=== PATIENT | female | born 1995 | race Caucasian/White ===

== ENCOUNTER 2016-06-04 02:00 | Emergency (ER) | payer BC ==
[2016-06-04 02:05] VITALS: BP 117/80; PULSE 110; RESP 18; TEMP 97.5; O2SAT 96
--- NOTE | 2016-06-04 02:08 | EDPHY ---
H & P Stated Complaint: laceration to right calf HPI/ROS: HPI CHIEF COMPLAINT: Laceration of right calf HISTORY OF PRESENT ILLNESS: This patient very pleasant 20-year-old female, denies any significant medical history except for chronic back pain, no surgical history, presents to the emergency room with a laceration to the right posterior calf. Patient states this happened approximately 20 minutes ago. Patient states that she was drinking this evening was going to go by [employer] however. Her friend's house who is highly intoxicated and was showing off 1 of his large knifes. She tells me they were both hold each other he, found slipped down hugging her legs and sustained a laceration to the posterior calf of the right leg. She denies any other areas of injury she states this was an accident this was not an actual stab wound or intentional injury. She states she was not stabbed. She denies any significant pain. She tells me she had 5-6 alcoholic drinks this evening. Tells her tetanus shot is up-to-date no other drugs. Past Medical History: Chronic back pain Past Surgical History: No significant surgical history Social History: Denies use of drugs, or tobacco products, occasional alcohol use, is a student and works part-time Family History: Noncontributory ROS REVIEW OF SYSTEMS: A comprehensive 10 point review of systems is otherwise negative aside from elements mentioned in the history of present illness. Exam Constitutional triage nursing summary reviewed, vital signs reviewed, awake/ alert. Eyes normal conjunctivae and sclera, EOMI, PERRLA. HENT normal inspection, atraumatic, moist mucus membranes, no epistaxis, neck supple/ no meningismus, no raccoon eyes. Respiratory clear to auscultation bilaterally, normal breath sounds, no respiratory distress, no wheezing. Cardiovascular rate normal, regular rhythm, no murmur, no edema, distal pulses normal. Gastrointestinal soft, non-tender, no rebound, no guarding, normal bowel sounds, no distension, no pulsatile mass. Genitourinary no CVA tenderness. Musculoskeletal right lower extremity: Posterior calf there is a 5 cm horizontal laceration mid calf posteriorly, distally she is neurovascular intact with good pulses, good DP, full flexion extension of her ankle no Achilles injury, good cap refill, good sensation, no midline vertebral tenderness, full range of motion, no calf swelling, no tenderness of extremities , no meningismus, good pulses, neurovascularly intact. Skin pink, warm, & dry, no rash, skin atraumatic. Neurologic awake, alert and oriented x 3, AAOx3, moves all 4 extremities equally, motor intact, sensory intact, CN II-XII intact, normal cerebellar, normal vision, normal speech. Psychiatric normal mood/affect. Heme/Lymph/Immune no lymphadenopathy. Differential Diagnosis: Includes but is not limited to in a particular, laceration to the right posterior calf, soft tissue injury. Medical Decision Making: This patient is laceration will be anesthetized and then cleaned sterilely and will need to be closed. Re-evaluation: Laceration Repair Procedure: Verbal Consent was obtained, Under sterile conditions, The patient had lidocaine with epinephrine used approximately 5ccs to local anesthetize the 5cm horizontal right post calf Laceration. The wound was copiously irrigated with sterile fluid, the wound was explored for foreign bodies there were none visualized, the wound was explored with a sterile glove to the base. There are no deep structures involved, including no arterial injury. SIX 4.0 Prolene interrupted Sutures were placed in this patient's laceration. She had good close approximation of the wound edges. She Tolerated this well. Source: Patient - Personal History Current Tetanus/Diphtheria Vaccine: Yes Current Tetanus Diphtheria and Acellular Pertussis (TDAP): Yes - Medical/Surgical History Hx Asthma: No Hx Chronic Respiratory Disease: No Hx Diabetes: No Hx Cardiac Disease: No Hx Renal Disease: No Hx Cirrhosis: No Hx Alcoholism: No Hx HIV/AIDS: No Hx Splenectomy or Spleen Trauma: No Other PMH: chronic back pain - Social History Smoking Status: Light smoker Constitutional: Initial Vital Signs Temperature (C) 36.4 C 06/04/16 02:02 Heart Rate 110 H 06/04/16 02:02 Respiratory Rate 18 06/04/16 02:02 Blood Pressure 117/80 06/04/16 02:02 O2 Sat (%) 96 06/04/16 02:02 O2 Delivery Mode Room Air Allergies/Adverse Reactions: No Known Allergies Allergy (Unverified 06/04/16 02:05) Home Medications: Medication Instructions Recorded Cephalexin [Keflex (*)] 500 mg PO Q6H #28 cap 06/04/16 Departure - Departure Disposition: Home, Routine, Self-Care Clinical Impression: Laceration Condition: Good Instructions: Laceration (ED), Care For Your Stitches (ED) Additional Instructions: 1. Please keep your wound clean, dry, intact. You may shower after 24 hours. Wash gently with soap and water. Use antibiotic ointment to help keep the sutures from scabbing over. 2. You needs to have your sutures removed in 12-14 days. Watch for signs of infection including increasing severe pain, redness, swelling, drainage, or fever. 3. Take your Keflex as prescribed. Referrals: [place] STATE,. [Primary Care Provider] - As per Instructions Prescriptions: Cephalexin [Keflex (*)] 500 mg PO Q6H #28 cap
== END 2016-06-04 04:12 | disposition home or self-care (01) ==
PROC: 0HQKXZZ Repair Right Lower Leg Skin, External Approach (ICD-10-PCS; principal; 2016-06-04)
DX: S81.811A Laceration without foreign body, right lower leg, initial encounter (principal); F17.200 Nicotine dependence, unspecified, uncomplicated; W26.0XXA Contact with knife, initial encounter

== ENCOUNTER 2018-04-27 13:44 | Emergency (ER) | payer BC, OTHER ==
--- NOTE | 2018-04-27 15:47 | EDPHY ---
H & P Stated Complaint: R calf pain/swelling Time Seen by Provider: 04/27/18 15:30 HPI/ROS: CHIEF COMPLAINT: Right calf pain HISTORY OF PRESENT ILLNESS: The patient presents the ED for evaluation of 2 days of atraumatic right calf pain. The patient does not smoke. The patient does not use control pills. The patient has no family history of thromboembolic disease. The patient denies any chest pain or shortness of breath. The patient has no complaints of fever. She denies any acute numbness or weakness. REVIEW OF SYSTEMS: A comprehensive 10 point review of systems is otherwise negative aside from elements mentioned in the history of present illness. Source: Patient Exam Limitations: No limitations - Personal History LMP (Females 10-55): 15-21 Days Ago Current Tetanus/Diphtheria Vaccine: Yes - Medical/Surgical History Hx Asthma: No Hx Chronic Respiratory Disease: No Hx Diabetes: No Hx Cardiac Disease: No Hx Renal Disease: No Hx Cirrhosis: No Hx Alcoholism: No Hx HIV/AIDS: No Hx Splenectomy or Spleen Trauma: No Other PMH: chronic back pain - Social History Smoking Status: Light smoker - Physical Exam Exam: General Appearance: Alert, no distress Eyes: Pupils equal and round no pallor or injection ENT, Mouth: Mucous membranes moist Respiratory: There are no retractions, lungs are clear to auscultation Cardiovascular: Regular rate and rhythm Gastrointestinal: Abdomen is soft and nontender, no masses, bowel sounds normal Neurological: 5/5 strength noted all 4 extremities Skin: Warm and dry, no rashes Musculoskeletal: Tenderness to palpation noted in the right calf, no asymmetry appreciated Extremities: symmetrical, full range of motion Constitutional: Initial Vital Signs Temperature (C) 36.6 C 04/27/18 14:02 Heart Rate 80 04/27/18 14:02 Respiratory Rate 18 04/27/18 14:02 Blood Pressure 111/75 04/27/18 14:02 O2 Sat (%) 97 04/27/18 14:02 O2 Delivery Mode Room Air Allergies/Adverse Reactions: No Known Allergies Allergy (Unverified 04/27/18 14:06) Home Medications: Medication Instructions Recorded Cephalexin [Keflex (*)] 500 mg PO Q6H #28 cap 06/04/16 Medical Decision Making - Diagnostics Imaging Results: Imaging Impressions Extremity Venous Study 04/27/18 15:39 Impression: No deep venous thrombosis right leg. Results called to Dr. Rajeev Terrazas at 4:25 PM. ED Course/Re-evaluation: The patient presents the ED for evaluation of atraumatic right calf pain. The patient has no clinical evidence of cellulitis, abscess or arterial insufficiency. The patient was taken for a ultrasound of the leg which demonstrates no evidence of a DVT. The patient was re-evaluated. I do believe that she is likely having a myofascial strain as the presentation of her symptoms today. She will be discharged home with customary aftercare instructions and return precautions. Plan for repeat ultrasound in 2 weeks for any ongoing symptoms. Differential Diagnosis: Differential diagnosis considered includes myofascial strain, DVT, cellulitis, abscess, arterial insufficiency Departure - Departure Disposition: Home, Routine, Self-Care Clinical Impression: Right calf pain Condition: Good Instructions: Musculoskeletal Pain (ED) Additional Instructions: 1. Take Ibuprofen or Motrin 600 mg by mouth three times a day. 2. Your ultrasound demonstrates no evidence of a DVT. 3. Repeat ultrasound in 2 weeks for any ongoing symptoms. 4. Return to the emergency department for markedly worsening symptoms, fever, redness, shortness of breath or other concerns.
[2018-04-27 16:39] VITALS: BP 118/69
== END 2018-04-27 16:38 | disposition home or self-care (01) ==
DX: M79.661 Pain in right lower leg (principal); M54.9 Dorsalgia, unspecified; G89.29 Other chronic pain